=== PATIENT | male | born 1985 | race Caucasian/White ===

== ENCOUNTER 2016-11-20 07:42 | Emergency (ER) | payer SELFPAY ==
[~2016-11-20] VITALS: Ht 180.3 cm; Wt 102.6 kg
[2016-11-20 08:00] VITALS: BP 142/100
[2016-11-20 08:18] LABS: DAU SCREEN DISCLAIMER
[2016-11-20 08:42] LABS: ASPARTATE AMINO TRANSFERASE 25 U/L (15-37); BLOOD UREA NITROGEN 15 mg/dL (7-18)
[2016-11-20 08:49] LABS: ACETAMINOPHEN < 2 mcg/mL (10-30)
== END 2016-11-20 10:40 | disposition home or self-care (01) ==
LOC: ED 08:45
DX: F41.1 Generalized anxiety disorder (principal); F23 Brief psychotic disorder; F31.9 Bipolar disorder, unspecified
CPT/HCPCS: 36415; 80053; 80307; 80329; 85025; 99284; G0480

== ENCOUNTER 2016-11-20 11:52 | Emergency (ER) | payer SELFPAY ==
[~2016-11-20] VITALS: Ht 180.3 cm; Wt 101.4 kg
== END 2016-11-20 12:14 ==
LOC: ED 12:06
DX: Z02.9 Encounter for administrative examinations, unspecified (principal)

== ENCOUNTER 2016-12-05 16:33 | Emergency (ER) | payer MEDICAID ==
[~2016-12-05] VITALS: Ht 180.3 cm; Wt 104.4 kg
[2016-12-05 16:49] VITALS: BP 139/80
[2016-12-05] MEDS ORDERED: DIPHENHYDRAMINE 50 MG CAPSULE ONE (16:55)
[2016-12-05] MEDS ORDERED: DIPHENHYDRAMINE 25 MG CAPSULE PO PRN (17:00)
[2016-12-05] MEDS ORDERED: DIPHENHYDRAMINE 25 MG CAPSULE PO ONE (17:00)
== END 2016-12-05 17:37 | disposition left against medical advice (07) ==
LOC: ED 17:31
DX: S60.362A Insect bite (nonvenomous) of left thumb, initial encounter (principal); T78.49XA Other allergy, initial encounter; W57.XXXA Bitten or stung by nonvenomous insect and other nonvenomous arthropods, initial encounter; Y93.89 Activity, other specified; Y92.89 Other specified places as the place of occurrence of the external cause; Y99.8 Other external cause status
CPT/HCPCS: 99283; Q0163